=== PATIENT | female | born 1950 | race Caucasian/White ===

== ENCOUNTER → 2016-12-13 | Outpatient (CLI) | payer MEDICARE, OTHER ==
--- NOTE | 2016-12-13 16:15 | KCIC ---
PROCEDURE Bilateral digital mammogram with CAD HISTORY Routine screening TECHNIQUE Bilateral digital routine views were obtained with computer-aided detection. COMPARISON none FINDINGS Density B: Mixed fatty and fibroglandular tissue. There is no suspicious mass, calcifications or areas of architectural distortion. IMPRESSION No suspicious findings. [Recommend routine screening mammography in one year.] This study was interpreted with the benefit of Computerized Aided Detection (CAD). Mammography is not 100% sensitive in detecting breast cancer. Therefore, a self breast exam and a clinical breast exam are very important. A negative mammogram does not negate a clinically suspicious finding and should not result in a delay in biopsying a clinically suspicious abnormality. BI-RADS category 1: Negative. Electronically signed by: Derick Ramos MD (Dec 13, 2016 16:13:27)
== END | disposition home or self-care (01) ==
LOC: KCIC MAMMO 10:24
PROVIDERS: ATTEND Family Medicine
DX: Z12.31 Encounter for screening mammogram for malignant neoplasm of breast (principal)
CPT/HCPCS: G0202; 77067

== ENCOUNTER → 2017-01-15 | Outpatient (CLI) | payer SELFPAY ==
--- NOTE | 2017-01-15 15:45 | KCIC ---
Coronary calcium score CT chest without contrast. Indication: Cardiovascular screening Reason For Study CT CALCIUM SCORING TECHNIQUE With retrospective electrocardiogram gaiting, axial reconstructed noncontrast images of the chest at the level of the heart were performed. Images were post processed on an independent workstation and calcium score was calculated. FINDINGS Total coronary calcium score is 0. This places the patient in the lowest percentile rank. This means that nearly all men of this age have a higher calcium score. There is no calcified plaque burden and very low cardiovascular risk. This is based on the calcium score of 0 of the left main coronary artery, 0 of the left anterior descending artery, score of 0 involving the left circumflex artery and score of 0 of the right coronary artery. Non coronary findings show no acute abnormality. Note is made of pectus excavatum. IMPRESSION Total coronary calcium score is 0. This places the patient in the lowest percentile rank. This means that nearly all women of this age have a higher calcium score. There is no calcified plaque burden and very low cardiovascular risk. Electronically signed by: Julián Gtz (Jan 15, 2017 15:44:23)
== END | disposition home or self-care (01) ==
LOC: EDUNIT# 01-07 10:30 → KCIC CT 14:56
PROVIDERS: ATTEND Family Medicine
DX: I10 Essential (primary) hypertension (principal)
CPT/HCPCS: 75571

== ENCOUNTER → 2017-10-02 | Outpatient (CLI) | payer MEDICARE ==
[~2017-10-02] MED LIST: REGADENOSON 0.4 MG/5 ML DISP.SYRIN. IV
== END | disposition home or self-care (01) ==
LOC: NM 08:57
DX: I49.8 Other specified cardiac arrhythmias (principal); E11.9 Type 2 diabetes mellitus without complications; I10 Essential (primary) hypertension
CPT/HCPCS: 78452; 93017; 96374; 96376; A9500

== ENCOUNTER → 2018-04-04 | Outpatient (CLI) | payer MEDICARE ==
[2018-04-04] MEDS: IOHEXOL 240 MG/ML 50ML VIAL. PO (08:30)
[2018-04-04] MEDS: IOHEXOL 300 MG/ML 100ML VIAL. IV (09:29)
== END | disposition home or self-care (01) ==
LOC: KCIC CT 08:14
DX: K86.2 Cyst of pancreas (principal); E11.9 Type 2 diabetes mellitus without complications; I10 Essential (primary) hypertension; M51.44 Schmorl's nodes, thoracic region; K57.30 Diverticulosis of large intestine without perforation or abscess without bleeding
CPT/HCPCS: 74177; Q9966; Q9967

== ENCOUNTER → 2019-03-04 | Outpatient (CLI) | payer MEDICARE ==
--- NOTE | 2019-03-05 09:39 | KCIC ---
BILATERAL SCREENING MAMMOGRAM History: Routine screening. Comparison: Bilateral mammogram December 13, 2016. Technique: Routine bilateral digital mammogram views were obtained. Findings: Breast Tissue Density B : There are scattered areas of fibroglandular density. There is a new small mass in the retroareolar left breast at mid depth along the nipple line on the CC view and just inferior to the nipple line on the second MLO view. Bilateral glandular nodularity appears stable. There are no suspicious microcalcifications or architectural distortion. IMPRESSION: New small mass in the retroareolar left breast at mid depth. Recommend left breast ultrasound. BI-RADS Category 0: Incomplete: Need additional imaging evaluation. The images were reviewed with computer aided detection. Patient information is entered into the reminder system with a target due date for the next screening mammogram. Mammography is the most sensitive method for finding small breast cancers, but it does not detect them all and is not a substitute for careful clinical examination. A negative mammogram does not negate a clinically suspicious finding and should not result in delay in biopsying a clinically suspicious abnormality. "Our facility is accredited by the [employer] Mammography [employer]." Electronically signed by: Andrei Muñoz MD (03/05/2019 9:36 AM) [id number]
== END | disposition home or self-care (01) ==
LOC: KCIC MAMMO 10:00
PROVIDERS: ATTEND Nurse Practitioner
DX: Z12.31 Encounter for screening mammogram for malignant neoplasm of breast (principal); N63.20 Unspecified lump in the left breast, unspecified quadrant
CPT/HCPCS: 77067

== ENCOUNTER → 2019-03-12 | Outpatient (CLI) | payer MEDICARE ==
--- NOTE | 2019-03-12 13:49 | KCIC ---
Left breast ultrasound: Reason for examination: Nodule on screening mammogram. Comparison is made to mammographic exam dated 03/04/2019. Ultrasound examination was performed with attention to the area of mammographic concern and the axilla. In the retroareolar position and corresponding to the area of mammographic concern there is a 5.9 mm hypoechoic circumscribed lesion which probably represents a complicated cyst. There is also a small 3.6 mm circumscribed nodule also probably representing a small complicated cyst 5 cm from the nipple at the 845 position. No abnormal appearing lymph nodes are seen. IMPRESSION: Small hypoechoic circumscribed lesions probably representing complicated cysts measuring 5.9 and 3.6 mm in size. The 5.9 mm lesion appears to correlate with the area of mammographic concern. Recommend reevaluation with ultrasound in 6 months. BI-RADS Category 3: Probably Benign. "Our facility is accredited by the [employer] Mammography [employer]." This patient's information has been entered into a reminder system for the patient to be notified with the results of her examination and a target date for the next mammogram. Electronically signed by: Ingrid Saldana MD (03/12/2019 1:46 PM) [id number]
== END | disposition home or self-care (01) ==
LOC: KCIC US 12:52
PROVIDERS: ATTEND Nurse Practitioner
DX: N64.89 Other specified disorders of breast (principal)
CPT/HCPCS: 76641

== ENCOUNTER → 2019-08-31 | Outpatient (CLI) | payer MEDICARE ==
--- NOTE | 2019-08-31 10:48 | KCIC ---
Left breast ultrasound: Reason for examination: Follow-up nodules. Comparison is made to previous study dated 03/12/2019. Ultrasound examination of the left breast and axilla was performed. At the 845 retroareolar position, there continues to be a small hypoechoic circumscribed lesion probably represented the cyst measuring 5.9 mm in greatest dimension which is unchanged. In the 845 position 5 cm from the nipple, there continues to be a small fibrocystic lesion measuring 1.6 mm in greatest dimension which has decreased in size. No other cystic or solid nodules are seen. No abnormal appearing lymph nodes are seen in the axilla. IMPRESSION: No change in the hypoechoic nodule seen in the retroareolar position of the left breast which probably represents a complicated cyst. Decreased size of the fibrocystic lesion at the 845 position 5 cm from the nipple. Recommend reevaluation with ultrasound in 6 months which can be performed at the time of bilateral mammograms. BI-RADS Category 3: Probably Benign. "Our facility is accredited by the [employer] Mammography [employer]." This patient's information has been entered into a reminder system for the patient to be notified with the results of her examination and a target date for the next mammogram. Electronically signed by: Ingrid Saldana MD (08/31/2019 10:46 AM) [id number]
== END | disposition home or self-care (01) ==
LOC: KCIC US 10:07
PROVIDERS: ATTEND Nurse Practitioner
DX: N64.89 Other specified disorders of breast (principal)
CPT/HCPCS: 76641

== ENCOUNTER → 2020-06-22 | Outpatient (CLI) | payer MEDICARE, OTHER ==
--- NOTE | 2020-06-22 09:57 | KCIC ---
EXAM: Bilateral digital diagnostic mammogram with tomosynthesis; left breast sonogram. HISTORY: 70-year-old female presents for follow-up evaluation of nodularity within the left breast. The patient is due for bilateral mammography. TECHNIQUE: Full-field digital craniocaudal and mediolateral oblique 2D and 3D tomosynthesis images of both breasts are obtained for evaluation. Computer aided detection with [employer] software version 9.3 was applied. Sonographic imaging of the left breast including all 4 quadrants and the retroareolar region was performed. COMPARISON: Sonograms dated 08/31/2019 and 03/12/2019 and mammogram dated 03/04/2019. BREAST PARENCHYMAL DENSITY: Level B - Scattered fibroglandular densities. FINDINGS: There is no new suspicious mass, microcalcification or region of architectural distortion. There are stable areas of nodularity and asymmetry within both breasts, allowing for differences in technique. Sonographic imaging of the left breast demonstrates a stable 3 mm complicated cyst or benign fibrous cystic lesion at the 8:45 position of the left breast 5 cm from the nipple. There is also a stable 8 mm cyst at the 8:45 retroareolar location. No new suspicious sonographic lesion is seen. IMPRESSION: 1. No new suspicious mammographic or sonographic finding. 2. BI-RADS Category 2: Benign finding(s). RECOMMENDATION: Annual mammography is recommended. If your mammogram demonstrates that you have dense breast tissue, which could hide abnormalities, and if you have other risk factors for breast cancer that have been identified, you might benefit from supplemental screening tests that may be suggested by your ordering physician. Dense breast tissue, in and of itself, is a relatively common condition. This information is not provided to cause undue concern, but rather to raise your awareness and to promote discussion with your physician regarding the presence of other risk factors, in addition to dense breast tissue. A report of your mammography results will be sent to you and your physician. You should contact your physician if you have any questions or concerns regarding this report. Mammography is a sensitive method for finding small breast cancers, but it does not detect them all and is not a substitute for careful clinical examination. A negative mammogram does not negate a clinically suspicious finding and should not result in delay in biopsying a clinically suspicious abnormality. PQRS compliance statement - Patient information was entered into a reminder system with a target due date for the next mammogram. "Our facility is accredited by the [employer] Mammography [employer]." Electronically signed by: Cynthia Singh MD (06/22/2020 9:53 AM) [id number]
== END | disposition home or self-care (01) ==
LOC: KCIC MAMMO 08:49
PROVIDERS: ATTEND Family Medicine
DX: R92.2 Inconclusive mammogram (principal); N63.20 Unspecified lump in the left breast, unspecified quadrant
CPT/HCPCS: 76641; 77066; G0279; 77062